=== PATIENT | female | born 2000 | race Caucasian/White ===

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

== ENCOUNTER 2022-05-19 21:12 | Emergency (ER) | payer BC ==
[2022-05-19 21:49] VITALS: BP 102/66; PULSE 74; RESP 18; TEMP 98.4
== END 2022-05-19 22:28 | disposition left against medical advice (07) ==
LOC: EC 21:12
DX: Z53.21 Procedure and treatment not carried out due to patient leaving prior to being seen by health care provider (principal)
CPT/HCPCS: 87635; 99499